=== PATIENT | female | born 1950 | race Caucasian/White ===

== ENCOUNTER 2023-11-11 11:05 | Emergency (ER) | payer MEDICARE, OTHER, SELFPAY ==
[2023-11-11 11:19] VITALS: BP 141/70; PULSE 88; RESP 30; O2SAT 95; BMI 34.5
--- NOTE | 2023-11-11 11:43 | ED.GENADULT ---
HPI - General Adult General Chief complaint: Ear/Nose/Throat Problem Stated complaint: Broke off qtip in trach Time Seen by Provider: 11/11/23 11:07 Source: patient Mode of arrival: ambulatory Limitations: no limitations History of Present Illness HPI narrative: Patient is a eduar 73-year-old female coming in today with concerns that there is a Q-tip stuck in her trachea. Patient has a tracheostomy placed she was cleaning it with a wooden Q-tip that broke off. She brings in a Q-tip, there is approximately 1 in missing from the top. She is in no respiratory distress. She feels no pain. She is not coughing. She does not feel short of breath. She does state that she removed her tracheostomy and there was no Q-tip inside. Her states that they did some suctioning and were not able to retrieve the Q-tip. Tracheostomy in place after patient suffered a cervical neck fracture Related Data Allergies Allergy/AdvReac Type Severity Reaction Status Date / Time aspirin Allergy Verified 11/11/23 11:19 lisinopril Allergy Verified 11/11/23 11:19 Sulfa (Sulfonamide Allergy Verified 11/11/23 11:19 Antibiotics) Review of Systems Status of ROS: Reports: 6 or more systems reviewed and unremarkable except as noted in History and below PFSH PFS Social History Smoking Status: Former smoker Do you use any of these nicotine containing products: None Second hand tobacco smoke exposure: No How often do you have a drink containing alcohol: never How often do you have six or more drinks on one occasion: Never AUDIT-C Alcohol total score: 0 Non-prescribed substance use: denies use service: No Exam Narrative: Exam Narrative: Well-nourished well-developed patient in no acute distress. Alert and oriented. Answers questions appropriately. Mood and affect are appropriate. Thoughts are goal oriented and rational. No tangential or magical thinking noted. Patient speaks without difficulty. She is not coughing. She is not in any respiratory distress. She does not appear uncomfortable. HEENT: Normocephalic atraumatic. Pupils are equally round reactive to light. Extraocular muscles are intact. Conjunctivae are moist without any icterus noted. Moist mucous membranes. Tracheostomy tube is in place, there is no surrounding erythema, drainage or tenderness. Const: Vital Signs, click to edit/add: Vital Signs - 24 hr 11/11/23 11:19 Pulse Rate [Pulse Oximeter] 88 Respiratory Rate 30 H Blood Pressure [Ri ght Upper Arm] 141/70 H Pulse Oximetry 95 Oxygen Delivery Me thod Room Air Course Course ED Course: I spoke to Dr. Milton, who recommends that the patient be transferred to [place] where she gets her usual care, for a bronchoscopy. I discussed transferring the patient to [place], patient states that she can call her doctor and go straight there by private vehicle. She did not wish to have an ER to ER transfer at this would delay care time at this point. Vital Signs Vital signs: Initial Vital Signs Temperature Source Temporal Artery Scan 11/11/23 11:19 Pulse Rate 88 11/11/23 11:19 Pulse Rhythm Regular 11/11/23 11:19 Respiratory Rate 30 H 11/11/23 11:19 Blood Pressure 141/70 H 11/11/23 11:19 Blood Pressure Mean 93 11/11/23 11:19 Blood Pressure Position Supine 11/11/23 11:19 Pulse Oximetry 95 11/11/23 11:19 Oxygen Delivery Method Room Air 11/11/23 11:19 Vital Signs Pulse Rate 88 11/11/23 11:19 Respiratory Rate 30 H 11/11/23 11:19 Blood Pressure 141/70 H 11/11/23 11:19 Pulse Oximetry 95 11/11/23 11:19 Oxygen Delivery Method Room Air 11/11/23 11:19 Pulse Rate 88 11/11/23 11:19 Respiratory Rate 30 H 11/11/23 11:19 Blood Pressure 141/70 H 11/11/23 11:19 Pulse Oximetry 95 11/11/23 11:19 Oxygen Delivery Method Room Air 11/11/23 11:19 Medical Decision Making MDM Narrative Medical decision making narrative: 73-year-old female with a 1 inhalation of a foreign object into the trachea through her tracheostomy tube. Patient will follow-up at [facility] [place]. Patient discharge in no distress, no pain. She understands that if it should change, she needs to return to the nearest ER. Discharge Plan Discharge Clinical Impression: Inhaled foreign object Patient Disposition: Home, Self-Care Condition: Stable Additional Instructions: Follow-up up at [facility] [place]. Follow Up/Referrals: Nazia Van DO [Primary Care Provider] - Stand Alone Forms: MyHealth Info Instructions
== END 2023-11-11 11:56 | disposition home or self-care (01) ==
LOC: ED 11:52
PROVIDERS: Emergency Provider Family Medicine; PCP Family Medicine
DX: T17.408A Unspecified foreign body in trachea causing other injury, initial encounter (principal); Z93.0 Tracheostomy status
CPT/HCPCS: 99283; 99284